=== PATIENT | male | born 1995 | race African-American/Black ===

== ENCOUNTER 2020-10-26 07:22 | Emergency (ER) | payer OTHER, SELFPAY ==
--- OUTSIDE RECORDS SUMMARY | 2020-10-26 07:24 | XMS REPORT | Continuity of Care Document ---
:1995 Author Organization [facility] t Address [address] [place] [address] Care Team Providers Name Role Phone Samira ESCALANTE, T Attending Clinician Unavailable Only, Test Attending Clinician Unavailable Problems This patient has no known problems. Allergies, Adverse Reactions, Alerts This patient has no known allergies or adverse reactions. Medications This patient has no known medications. Procedures This patient has no known procedures. Encounters Start End Encounter Admission Attending Care Care Encounter Source Date/Time Date/Time Type Type Clinicians Facility Department ID 2020-04-10 2020-04-10 Letter EVAN Hogan [id number] 00:00:00 00:00:00 (Out) Joan CHIU 350.1.13.10 [facility] [id number] 2020-04-09 2020-04-09 Laboratory Only, [facility] [id number] 13:09:59 13:24:59 Only Test [place] 350.1.13.10 [place] 4.2.7.2.686 [place] [id number] 2020-04-08 2020-04-08 Laboratory Only, [facility] 1.2.840.114 [id number] 10:18:01 10:33:01 Only Test [place] 350.1.13.10 [place] 4.2.7.2.686 [place] [id number] 353 Results This patient has no known results.
[2020-10-26 08:03] LABS: Urine Blood 3+ (Negative); Urine Glucose Negative (Negative); Urine Protein Trace (Negative); Urine Specific Gravity 1.025 (1.005-1.030)
[2020-10-26 08:22] LABS: Absolute Lymphocytes (CBC) 1.6 K/uL (0.7-4.9); Basophils % 0.7 % (0-1.3); Hematocrit 47.2 % (39.6-49.0); Lymphocytes % 27.8 % (15.3-44.8); MPV 8.1 fL (7.6-11.3); RBC Red Blood Cell Count 5.46 M/uL (4.33-5.43)
[2020-10-26] MEDS ORDERED: ONDANSETRON 4 MG/2 ML VIAL ONE (08:22)
[2020-10-26] MEDS ORDERED: NA CHLORIDE 0.9% 1,000 ML ONE (08:22)
[2020-10-26] MEDS ORDERED: KETOROLAC 30 MG/ML INJ ONE (08:22)
[2020-10-26 09:02] LABS: Albumin 3.9 g/dL (3.4-5.0); Bilirubin Direct 0.1 mg/dL (0-0.2); Bilirubin Total 0.3 mg/dL (0.2-1.0); Potassium 3.7 mmol/L (3.5-5.1); Protein, Total 7.1 g/dL (6.4-8.2)
--- NOTE | 2020-10-26 09:23 | RAD REPORT ---
EXAM DESCRIPTION: CT - Abdomen Pelvis W Contrast - 10/26/2020 8:30 am CLINICAL HISTORY: LLQ abd pain ? diverticulitis vs stone COMPARISON: No comparisons TECHNIQUE: Biphasic, helical CT imaging of the abdomen and pelvis was performed following 100 ml non -ionic IV contrast. No oral contrast administered. All CT scans are performed using dose optimization technique as appropriate and may include automated exposure control or mA/KV adjustment according to patient size. FINDINGS: No suspicious findings in the lung bases. The liver, spleen, and pancreas show no suspicious findings. Gallbladder and biliary tree are also wi thout suspicious finding. Symmetric renal function is seen with no hydronephrosis or suspicious renal mass. Hyperdense areas in bilateral renal calices could be nonobstructing calculi or focally dense contrast material. This is not an acute clinical finding. Right kidney is incompletely rotated as a normal variant. No obstructi ng calculi. Phleboliths are seen along the pelvic floor. No pyelonephritis or acute parenchymal proce ss. No bladder abnormalities. No adrenal abnormalities. No dilated bowel loops or bowel wall thickening. No inflammatory bowel changes seen. Appendix is norm al. Moderate stool volume seen in the right-side of the colon. No free air, free fluid or inflammator y stranding. No mass or bulky lymphadenopathy. Small fat only umbilical hernia present. No suspicious bony findings. IMPRESSION: Contrast enhanced CT abdomen and pelvis showing no significant or suspicious finding. Patient appears to have nonobstructing renal calyx calculi. No evidence for an acute obstructing calc ulus.
--- NOTE | 2020-10-26 09:37 | EDPHYS ---
Physician Documentation [facility] Name: Kirill Collins Age: 25 yrs Sex: Male : 1995 Arrival Date: 10/26/2020 Time: 07:24 Bed 17 Private MD: ED Physician Moose Leal HPI: 10/26 09:34 This 25 yrs old Black Male presents to ER via Ambulatory with complaints of Abdominal ma2 Pain. 09:34 The patient complains of pain in the left mid back. Severity of pain: At its worst the ma2 pain was very mild in the emergency department the pain has improved. The patient has not experienced similar symptoms in the past. Historical: - Allergies: 07:38 No Known Allergies; aa5 - Home Meds: 07:38 amlodipine 2.5 mg tab 1 tab once daily [Active]; lisinopril 20 mg Oral tab 1 tab once aa5 daily [Active]; "appetite suppressant" [Active]; - PMHx: 07:38 Hypertension; aa5 - PSHx: 07:38 None; aa5 - Immunization history:: Adult Immunizations unknown. - Social history:: Smoking status: Patient denies any tobacco usage or history of. Patient/guardian denies using alcohol, street drugs, The patient lives with family. - Family history:: not pertinent. ROS: 09:34 Constitutional: Negative for fever, chills, and weight loss. ma2 09:34 All other systems are negative. Exam: 09:34 Constitutional: This is a well developed, well nourished patient who is awake, alert, ma2 and in no acute distress. Eyes: Pupils equal round and reactive to light, extra-ocular motions intact. Lids and lashes normal. Conjunctiva and sclera are non-icteric and not injected. Cornea within normal limits. Periorbital areas with no swelling, redness, or edema. ENT: Nares patent. No nasal discharge, no septal abnormalities noted. Tympanic membranes are normal and external auditory canals are clear. Oropharynx with no redness, swelling, or masses, exudates, or evidence of obstruction, uvula midline. Mucous membranes moist. Neck: Trachea midline, no thyromegaly or masses palpated, and no cervical lymphadenopathy. Supple, full range of motion without nuchal rigidity, or vertebral point tenderness. No Meningismus. Chest/axilla: Normal chest wall appearance and motion. Nontender with no deformity. No lesions are appreciated. Cardiovascular: Regular rate and rhythm with a normal S1 and S2. No gallops, murmurs, or rubs. Normal PMI, no JVD. No pulse deficits. Respiratory: Lungs have equal breath sounds bilaterally, clear to auscultation and percussion. No rales, rhonchi or wheezes noted. No increased work of breathing, no retractions or nasal flaring. Abdomen/GI: Soft, non-tender, with normal bowel sounds. No distension or tympany. No guarding or rebound. No evidence of tenderness throughout. Skin: Warm, dry with normal turgor. Normal color with no rashes, no lesions, and no evidence of cellulitis. MS/ Extremity: Pulses equal, no cyanosis. Neurovascular intact. Full, normal range of motion. Neuro: Awake and alert, GCS 15, oriented to person, place, time, and situation. Cranial nerves II-XII grossly intact. Motor strength 5/5 in all extremities. Sensory grossly intact. Cerebellar exam normal. Normal gait. Vital Signs: 07:25 BP 166 / 93; Pulse 73; Resp 16 S; Temp 98.5(O); Pulse Ox 98% on R/A; Weight 102.06 kg aa5 (R); Height 6 ft. 0 in. (182.88 cm) (R); Pain 6/10; 08:30 BP 140 / 93; Pulse 68; Resp 17; Pulse Ox 98% on R/A; kg 09:30 BP 136 / 88; Pulse 60; Resp 17; Pulse Ox 99% on R/A; kg 10:03 BP 136 / 88; Pulse 60; Resp 19; Pulse Ox 99% on R/A; kg 07:25 Body Mass Index 30.52 (102.06 kg, 182.88 cm) aa5 MDM: 07:30 Patient medically screened. ma2 09:34 Differential diagnosis: nephrolithiasis, UTI, diverticulitis, pancreatitis. Data ma2 reviewed: vital signs, nurses notes. Counseling: I had a detailed discussion with the patient and/or guardian regarding: the historical points, exam findings, and any diagnostic results supporting the discharge/admit diagnosis, the presence of at least one elevated blood pressure reading (>120/80) during this emergency department visit, the need for outpatient follow up. Response to treatment: the patient's symptoms have markedly improved after treatment. 10/26 07:42 Order name: Basic Metabolic Panel [facility] 10/26 07:42 Order name: CBC with Diff ri2 10/26 07:42 Order name: Hepatic Function; Complete Time: 09:02 ri2 10/26 07:42 Order name: Lipase; Complete Time: 09:02 ri2 10/26 07:42 Order name: Basic Metabolic Panel; Complete Time: 09:02 MS 10/26 07:42 Order name: CBC with Automated Diff; Complete Time: 08:31 MS 10/26 07:42 Order name: IV Saline Lock; Complete Time: 08:15 [facility] 10/26 07:42 Order name: Labs collected and sent; Complete Time: 08:15 ri2 10/26 07:42 Order name: CT Abd/Pelvis - IV Contrast Only; Complete Time: 09:24 [facility] 10/26 08:02 Order name: Urine Dipstick-Ancillary [facility] 10/26 08:30 Order name: CREATININE WHOLE BLOOD; Complete Time: 08:31 [facility] 10/26 07:42 Order name: Urine Dipstick-Ancillary (obtain specimen); Complete Time: 08:15 ma2 Administered Medications: 08:10 Drug: NS 0.9% 1000 ml Route: IV; Rate: 1 bolus; Site: right antecubital; kg 10:05 Follow up: IV Status: Completed infusion; IV Intake: 1000ml kg 10:20 Follow up: Response: No adverse reaction; Marked relief of symptoms kg 08:10 Drug: TORadol (ketorolac) 30 mg Route: IVP; Site: right antecubital; kg 08:54 Follow up: Response: No adverse reaction; Marked relief of symptoms; Pain is decreased kg 08:10 Drug: Zofran (Ondansetron) 4 mg Route: IVP; Site: right antecubital; kg 08:54 Follow up: Response: No adverse reaction; Marked relief of symptoms kg Disposition: 10/26/20 09:36 Discharged to Home. Impression: Lower abdominal pain, unspecified. - Condition is Stable. - Discharge Instructions: Colic, Ufkm-dn-Koba. - Prescriptions for Zofran 4 mg Oral Tablet - take 1 tablet by ORAL route every 12 hours As needed; 20 tablet. Flomax 0.4 mg Oral Capsule, Sust. Release 24 hr - take 1 capsule by ORAL route once daily 1/2 hour following the same meal each day; 30 capsule. Diclofenac Sodium 75 mg Oral Tablet Sustained Release - take 1 tablet by ORAL route 2 times per day; 30 tablet. - Medication Reconciliation Form, Thank You Letter, Antibiotic Education, Prescription Opioid Use form. - Follow up: Private Physician; When: Tomorrow; Reason: If symptoms return, Continuance of care. Signatures: Dispatcher [employer] EDNorma Patricio, RN RN aa5 Moose Leal MD MD ma2 Ann Marie Barrientos kg Corrections: (The following items were deleted from the chart) 10:20 09:36 10/26/2020 09:36 Discharged to Home. Impression: Lower abdominal pain, kg unspecified. Condition is Stable. Prescriptions for Zofran 4 mg Oral Tablet - take 1 tablet by ORAL route every 12 hours As needed; 20 tablet, Flomax 0.4 mg Oral Capsule, Sust. Release 24 hr - take 1 capsule by ORAL route once daily 1/2 hour following the same meal each day; 30 capsule, Diclofenac Sodium 75 mg Oral Tablet Sustained Release - take 1 tablet by ORAL route 2 times per day; 30 tablet. and Forms are Medication Reconciliation Form, Thank You Letter, Antibiotic Education, Prescription Opioid Use. Follow up: Private Physician; When: Tomorrow; Reason: If symptoms return, Continuance of care. ma2
--- NOTE | 2020-10-26 09:37 | ER ---
Nurse's Notes [facility] Name: Kirill Collins Age: 25 yrs Sex: Male : 1995 Arrival Date: 10/26/2020 Time: 07:24 Bed 17 Private MD: Diagnosis: Lower abdominal pain, unspecified Presentation: 10/26 07:25 Chief complaint: Patient states: LLQ pain that began at 0530, reports vomiting twice aa5 today. 07:25 Coronavirus screen: vomiting. Ebola Screen: Patient negative for fever greater than or aa5 equal to 101.5 degrees Fahrenheit, and additional compatible Ebola Virus Disease symptoms. Initial Sepsis Screen: Does the patient meet any 2 criteria? No. Patient's initial sepsis screen is negative. Does the patient have a suspected source of infection? No. Patient's initial sepsis screen is negative. Risk Assessment: Do you want to hurt yourself or someone else? Patient reports no desire to harm self or others. Onset of symptoms was October 2020. 07:25 Acuity: KELLY 3 aa5 07:25 Method Of Arrival: Ambulatory aa5 Historical: - Allergies: 07:38 No Known Allergies; aa5 - Home Meds: 07:38 amlodipine 2.5 mg tab 1 tab once daily [Active]; lisinopril 20 mg Oral tab 1 tab once aa5 daily [Active]; "appetite suppressant" [Active]; - PMHx: 07:38 Hypertension; aa5 - PSHx: 07:38 None; aa5 - Immunization history:: Adult Immunizations unknown. - Social history:: Smoking status: Patient denies any tobacco usage or history of. Patient/guardian denies using alcohol, street drugs, The patient lives with family. - Family history:: not pertinent. Screenin:23 Abuse screen: Denies threats or abuse. Denies injuries from another. Nutritional kg screening: No deficits noted. Tuberculosis screening: No symptoms or risk factors identified. Fall Risk None identified. No fall in past 12 months (0 pts). No secondary diagnosis (0 pts). IV access (20 points). Ambulatory Aid- None/Bed Rest/Nurse Assist (0 pts). Gait- Normal/Bed Rest/Wheelchair (0 pts) Mental Status- Oriented to own ability (0 pts). Total Jha Fall Scale indicates No Risk (0-24 pts). Assessment: 08:21 General: Appears in no apparent distress. Behavior is calm, cooperative, appropriate kg for age, quiet. Pain: Complains of pain in right femoral area, suprapubic area and right inguinal area Pain does not radiate. Pain currently is 3 out of 10 on a pain scale. at worst was 8 out of 10 on a pain scale. level that patient reports is acceptable is 5 out of 10 on a pain scale. Quality of pain is described as aching, sharp, Pain began 4 hours ago. 08:22 Neuro: No deficits noted. Cardiovascular: No deficits noted. Respiratory: No deficits kg noted. GI: Bowel sounds present X 4 quads. Abd is soft Abdomen is tender to palpation in right upper quadrant and right lower quadrant Reports lower abdominal pain, nausea, vomiting. : No deficits noted. : Reports decrease in pain after urination. EENT: No deficits noted. Derm: No deficits noted. Musculoskeletal: No deficits noted. Vital Signs: 07:25 BP 166 / 93; Pulse 73; Resp 16 S; Temp 98.5(O); Pulse Ox 98% on R/A; Weight 102.06 kg aa5 (R); Height 6 ft. 0 in. (182.88 cm) (R); Pain 6/10; 08:30 BP 140 / 93; Pulse 68; Resp 17; Pulse Ox 98% on R/A; kg 09:30 BP 136 / 88; Pulse 60; Resp 17; Pulse Ox 99% on R/A; kg 10:03 BP 136 / 88; Pulse 60; Resp 19; Pulse Ox 99% on R/A; kg 07:25 Body Mass Index 30.52 (102.06 kg, 182.88 cm) aa5 ED Course: 07:24 Patient arrived in ED. as 07:25 Arm band placed on. aa5 07:30 Moose Leal MD is Attending Physician. ma2 07:36 Triage completed. aa5 07:41 Ann Marie Barrientos is Primary Nurse. kg 08:05 Inserted saline lock: 20 gauge in right antecubital area, using aseptic technique. kg 08:24 Patient has correct armband on for positive identification. Bed in low position. Call kg light in reach. Side rails up X 1. 08:31 CT Abd/Pelvis - IV Contrast Only In Process Unspecified. EDMS 10:18 IV discontinued, intact, bleeding controlled, No redness/swelling at site. Pressure kg dressing applied. 10:19 No provider procedures requiring assistance completed. kg Administered Medications: 08:10 Drug: NS 0.9% 1000 ml Route: IV; Rate: 1 bolus; Site: right antecubital; kg 10:05 Follow up: IV Status: Completed infusion; IV Intake: 1000ml kg 10:20 Follow up: Response: No adverse reaction; Marked relief of symptoms kg 08:10 Drug: TORadol (ketorolac) 30 mg Route: IVP; Site: right antecubital; kg 08:54 Follow up: Response: No adverse reaction; Marked relief of symptoms; Pain is decreased kg 08:10 Drug: Zofran (Ondansetron) 4 mg Route: IVP; Site: right antecubital; kg 08:54 Follow up: Response: No adverse reaction; Marked relief of symptoms kg Intake: 10:05 IV: 1000ml; Total: 1000ml. kg Outcome: 09:36 Discharge ordered by MD. tobin 10:19 Discharged to home ambulatory. kg 10:19 Condition: good 10:19 Discharge instructions given to patient, Instructed on discharge instructions, follow up and referral plans. Demonstrated understanding of instructions, follow-up care, medications, Prescriptions given X 3. 10:20 Patient left the ED. kg Signatures: Dispatcher [employer] Criss Bryson Audri, RN RN aa5 Moose Leal MD MD ma2 Graham, Kristen kg
[2020-10-26 10:26] VITALS: TEMP 98.5
[2020-10-26 10:30] VITALS: BP 136/88; O2SAT 99
== END 2020-10-26 10:20 | disposition home or self-care (01) ==
LOC: ER 07:22
DX: R10.30 Lower abdominal pain, unspecified (principal); I10 Essential (primary) hypertension
CPT/HCPCS: 36415; 74177; 80048; 80076; 81003; 82565; 83690; 85025; 96361; 96374; 96375; 99284; J2405; J7030; Q9967

== ENCOUNTER 2025-01-15 10:10 | Inpatient (IN) | payer OTHER ==
--- OUTSIDE RECORDS SUMMARY | 2025-01-15 10:14 | XMS REPORT | Continuity of Care Document ---
Author Name Unknown Address [address] [place] [address] [facility] Address [address] [place] [address] Care Team Providers Care Infectious Waste Technician Name Role Phone MARIELA SU Primary Care Physician Unavaila СЕРГЕЙ Molina Attending Clinician Unavailable СЕРГЕЙ VASQUEZ Attending Clinician Unavailable 2, Adc Lab Attending Clinician Unavailable Abhay EVALUATION ENGINEER, Terell Attending Clinician Samira ESCALANTE, Joan Terrell Attending Clinician Unavailab le Only, Ang Db Test Attending Clinician Unavailabl e Spring Moore Attending Clinician [phone] [place] HOLGUIN Attending Clinician Unavailabl e Doctor Unassigned, Angelica Attending Clinician U navailable Only, Adc Test Attending Clinician Unavailable Prince Lozada MD Attending Clinician [phone] PRINCE LOZADA Attending Clinician Unavailabl e Payers Payer Name Policy Type Policy Number Effective Date Expirati on Date Source [employer] II [id number] 2020 00:00:00 [facility] [id number] 2019 00:00:00 Allergies, Adverse Reactions, Alerts Allergy Name Allergy Type Status Severity Reaction(s) Onset Date Inactive Date Treating Clinician Comments Source NO KNOWN ALLERGIE S Drug Class Active [facility] Social History Social Habit Start Date Stop Date Quantity Comments Source Sexual orientation U [facility] Exposure to SARS-CoV-2 (event) 2021-03-07 00:00:00 2021-04-06 13:29:00 Not sure [facility] Sex assigned at 1995 00:00:00 1995 00:00:00 [facility] Smoking Status Start Date Stop Date Source Tobacco smoking consumption unknown [facility] Encounters Start Date/Time End Date/Time Encounter Type Admission Type Attending [facility] Facility Care Department Encounter ID Source 2024-11-20 11:15:00 2024-11-20 10:14:18 Chip Mucker Visit R СЕРГЕЙ VASQUEZ NAVEED [facility] 1.2.840.114 350.1.13.10 [id number] [id number] [facility] 2024-11-19 11:45:00 2024-11-19 12:00:00 Chip Mucker Visit R 2, Adc Lab Terell Blank 2, Adc Lab [facility] 1.2.840.114 350.1.13.10 [id number] [id number] [facility] 2021-04-07 00:00:00 2021-04-07 00:00:00 Letter (Out) Joan Hogan [facility] 1.2.840.114 350.1.13.10 [id number] [id number] [facility] 2021-04-06 13:30:40 2021-04-06 13:45:40 Laboratory Only Only, Ang Db Test Spring Holguin [facility] 1.2.840.114 350.1.13.10 [id number] [id number] [facility] 2021-04-06 13:30:00 2021-04-06 13:30:00 Outpatient R SPRING HOLGUIN [facility] [id number] [facility] 2020-04-10 00:00:00 2020-04-10 00:00:00 [facility] 1.2.840.114 350.1.13.10 4.2.7.2.686 [id number] 2020-04-10 00:00:00 2020-04-10 00:00:00 [facility] (Out[facility] 1.2.840.114 350.1.13.10 4.2.7.2.686 [id number] [facility] 2020-04-10 00:00:00 2020-04-10 00:00:00 Patient Secure Msg Doctor Unassigned, Angelica [facility] 1.2.840.114 350.1.13.10 4.2.7.2.686 [id number] [facility] 2020-04-09 13:09:59 2020-04-09 13:24:59 Laboratory Only Only, Adc Test [facility] 1.2.840.114 350.1.13.10 4.2.7.2.686 [id number] 2020-04-09 13:09:59 2020-04-09 13:24:59 Laboratory Only Only, Adc Test Reanna [facility] 1.2.840.114 350.1.13.10 4.2.7.2.686 [id number] [facility] 2020-04-09 13:00:00 2020-04-09 13:00:00 Outpatient R [facility] [id number] [facility] 2020-04-08 10:18:01 2020-04-08 10:33:01 Laboratory Only Only, Adc Test Reanna [facility] 1.2.840.114 350.1.13.10 4.2.7.2.686 [id number] [facility] 2020-04-08 10:18:01 2020-04-08 10:33:01 Laboratory Only Only, Adc Test [facility] 1.2.840.114 350.1.13.10 4.2.7.2.686 [id number] 2020-04-08 10:00:00 2020-04-08 10:00:00 Outpatient PRINCE LILLY [facility] [id number] [facility] Notes Date/Time Note Provider Source 2024-11-20 11:15:00 Images from the original note were not included. Venipuncture collection performed by clean technique on the left anticubitus. Total of 1 attempts were made. Slight pressure and a bandage/dressing were applied to the site(s). The patient experienced no complications. The following specimens were processed according to instructions and sent to [facility] laboratories per lab order on 11/20/2024 : LT BLUE SST 2 RED LAV 1 PPT DK GREEN (LiHep) DK GREEN (SodH) [place] DK BLUE (K2) DK BLUE (S) ACD Blood Culture NIPT/NTD Patient has been identified by and was provided with cup, antiseptic towelette, and clean catch instructions. 1 urine specimen(s) sent. Unpreserved 1 Urine Culture Aptima tube Other urine [facility] 2024-11-19 11:45:00 No lab orders. Pt not availble to let us know who ordering provider for 24hr urine Jesi Espino [facility]
[2025-01-15] MEDS ORDERED: NA CHLORIDE 0.9% 1,000 ML ONE (11:14)
[2025-01-15] MEDS ORDERED: KETOROLAC 30 MG/ML INJ ONE (11:14)
[2025-01-15 11:15] LABS: Absolute Lymphocytes (CBC) 1.3 K/uL (0.7-4.9); Hematocrit 47.5 % (39.6-49.0); Hemoglobin 16.0 g/dL (13.6-17.9); MCH 29.9 pg (27.0-35.0); MCHC 33.8 g/dL (32.0-36.0); MCV 88.5 fL (80-100); MPV 7.3 fL (7.6-11.3); Nucleated RBC Absolute Count 0.0 (0-0); Nucleated Red Blood Cells % 0.1 % (0-0); RBC Red Blood Cell Count 5.36 M/uL (4.33-5.43); White Blood Count 7.70 thou/uL (4.3-10.9)
[2025-01-15 11:21] LABS: Sqamous Epithelial None Seen /HPF (None Seen); Urine Culture Reflex Order NOT NEEDED; Urine Microscopic Reflex YN ORDER UMIC
[2025-01-15 11:38] LABS: ALT/SGPT 40.0 U/L (16-61); AST/SGOT 32.0 U/L (15-37); Albumin 3.8 g/dL (3.4-5.0); Albumin/Globulin Ratio 1.2 (1.1-1.8); Alkaline Phosphatase 56.0 U/L (45-117); Anion Gap 7.8 mEq/L (5.0-15.0); BUN Blood Urea Nitrogen 28.0 mg/dL (7-18); Globulin 3.3 g/dL (2.3-3.5); Glucose Level 95.0 mg/dL (74-106); Lipase 22.0 U/L (13-75); Potassium 3.8 mEq/L (3.5-5.1)
--- NOTE | 2025-01-15 11:52 | RAD REPORT ---
EXAMINATION: CT Abdomen Pelvis Wo Contrast CLINICAL INDICATION: Male, 30 years old. FLANK PAIN TECHNIQUE: CT abdomen and pelvis was performed, without IV contrast, as per department protocol. Axia l, sagittal and coronal reconstructions were obtained. One or more of the following dose reduction techniques were used: Automated exposure control, adjustment of the mA and kV according to the patien t size, and iterative reconstruction. Unless otherwise specified, incidental findings do not require dedicated imaging follow-up. COMPARISON: 12/27/2024 FINDINGS: The lack of intravenous contrast limits the sensitivity of this exam for evaluation of solid visceral organs, vascular structures, and retroperitoneum. LOWER CHEST: The visualized lung bases are clear. LIVER: Normal in size and contour. No focal lesion. BILIARY SYSTEM: No suspicious abnormalities. SPLEEN: Normal size. No focal lesion. PANCREAS: No mass, ductal dilation, or cricket-pancreatic fluid. ADRENALS: Normal; no mass. KIDNEYS AND URETERS: Anteriorly located right kidney again seen. 6 mm calculus along the right ureter has now progressed to the level of the mid to distal right ureter junction. Moderate hydroureteronephrosis again seen. 2-3 mm left upper pole nonobstructing calculus again seen. URINARY BLADDER: Normal contour. GASTROINTESTINAL TRACT: No evidence of bowel obstruction, significant free fluid, free air or abscess . APPENDIX: Normal appendix. LYMPH NODES: No lymphadenopathy. MUSCULOSKELETAL: No acute or suspicious osseous abnormality. ADDITIONAL FINDINGS: None. IMPRESSION: The 6 mm right ureteral calculus now resides at the junction of the mid to distal ureter. Persistent moderate hydroureteronephrosis. Nonobstructing left upper pole 3 mm calculus again seen. THIS REPORT CONTAINS FINDINGS THAT MAY BE CRITICAL TO PATIENT CARE. The findings were verbally commun icated via telephone to Imelda Tsai on 01/15/2025 11:50 AM.
--- NOTE | 2025-01-15 12:45 | ER ---
Nurse's Notes [facility] Name: Kirill Collins Jr Age: 30 yrs Sex: Male : 1995 Arrival Date: 01/15/2025 Time: 10:10 Bed 6 Private MD: Diagnosis: Ureterolithiasis, acute kidney injury Presentation: 01/15 10:26 Chief complaint: Patient states: came in a couple weeks ago for a kidney stone, he iw never passed it , now the pain is back this morning , pain to my bladder area. Coronavirus screen: At this time, the client does not indicate any symptoms associated with coronavirus-19. Ebola Screen: No symptoms or risks identified at this time. Initial Sepsis Screen: Does the patient meet any 2 criteria? No. Patient's initial sepsis screen is negative. Does the patient have a suspected source of infection? No. Patient's initial sepsis screen is negative. Risk Assessment: Do you want to hurt yourself or someone else? Patient reports no desire to harm self or others. Onset of symptoms was January 15, 2025. 10:26 Method Of Arrival: Ambulatory iw 10:26 Acuity: KELLY 3 iw Triage Assessment: 10:30 General: Appears in no apparent distress. Behavior is calm, cooperative, appropriate bp for age. Pain: Complains of pain in back. EENT: No deficits noted. Neuro: No deficits noted. Cardiovascular: No deficits noted. Respiratory: No deficits noted. GI: No deficits noted. : Reports pain in lower back. Derm: No deficits noted. Musculoskeletal: Circulation, motion, and sensation intact. Range of motion: intact in all extremities. Historical: - Allergies: 10:28 No Known Allergies; iw - Home Meds: 10:28 amlodipine 2.5 mg tab 1 tab once daily [Active]; lisinopril-hydrochlorothiazide oral iw [Active]; - PMHx: 10:28 Hypertension; iw - PSHx: 10:28 None; iw - Immunization history:: Adult Immunizations up to date. - Infectious Disease History:: Denies. - Social history:: Smoking status: Patient denies any tobacco usage or history of. Screenin:38 [facility] ED Fall Risk Assessment (Adult) History of falling in the last 3 months, bp including since admission No falls in past 3 months (0 pts) Confusion or Disorientation No (0 pts) Intoxicated or Sedated No (0 pts) Impaired Gait No (0 pts) Mobility Assist Device Used No (0 pt) Altered Elimination No (0 pt) Score/Fall Risk Level 0 - 2 = Low Risk Oriented to surroundings. Abuse screen: Denies threats or abuse. Denies injuries from another. Nutritional screening: No deficits noted. Tuberculosis screening: No symptoms or risk factors identified. Assessment: 10:30 General: SEE TRIAGE NOTE. Neuro: Level of Consciousness is awake, alert, obeys bp commands, Oriented to Appropriate for age Moves all extremities. Full function. 12:37 Reassessment: Patient appears in no apparent distress at this time. Patient is alert, bp oriented x 3, equal unlabored respirations, skin warm/dry/pink. 14:33 Reassessment: REPORT SENT FOR RM 206. PT FOR OR. bp Vital Signs: 10:26 BP 135 / 94; Pulse 71; Resp 16; Temp 97.3; Pulse Ox 99% ; Weight 95.25 kg; Height 6 ft. iw 0 in. ; Pain 7/10; 12:37 BP 127 / 89; Pulse 73; Resp 16; Pulse Ox 100% ; bp 14:32 BP 131 / 79; Pulse 75; Resp 16; Pulse Ox 99% ; bp 10:26 Body Mass Index 28.48 (95.25 kg, 182.88 cm) iw 10:26 Pain Scale: Adult iw ED Course: 10:14 Patient arrived in ED. gl 10:24 Corinne Aguilar MD is Attending Physician. sp3 10:28 Triage completed. iw 10:28 Arm band placed on. iw 10:36 Jhonathan Morales, RN is Primary Nurse. bp 10:57 CT Abd/Pelvis - Without Contrast In Process Unspecified. EDMS 11:13 Initial lab(s) drawn, by me, sent to lab. Urine collected: clean catch specimen, clear. [id number] Inserted saline lock: 20 gauge in right antecubital area, using aseptic technique. Blood collected. Flushed with 10 mL NS. Patient maintains SpO2 saturation greater than 95% on room air. 12:38 Patient has correct armband on for positive identification. bp 12:44 Mike Serna MD is Hospitalizing Provider. sp3 14:32 No provider procedures requiring assistance completed. Patient admitted, IV remains in bp place. Administered Medications: 11:15 Drug: TORadol - Ketorolac IVP 15 mg IVP once Route: IVP; Site: right antecubital; bp 14:33 Follow up: Response: No adverse reaction bp 11:15 Drug: NS 0.9% IV 1000 ml IV at 1 bolus Per protocol; to be given as a bolus over 60 bp minutes Route: IV; Rate: 1 bolus; Site: right antecubital; 14:33 Follow up: IV Status: Completed infusion bp Outcome: 12:44 Decision to Hospitalize by Provider. sp3 14:34 Admitted to OR accompanied by nurse, via wheelchair, bp 14:34 Condition: stable 14:34 Instructed on the need for admit, 14:37 Patient left the ED. bp Signatures: Dispatcher [employer] EDJovanna Rowe, Jhonathan Peralta RN, RN RN bp Patel, Setul, MD MD sp3 Ira Blank RN RN [id number] Karen Corley, Reg Reg gl
--- NOTE | 2025-01-15 12:45 | EDPHYS ---
Physician Documentation [facility] Name: Kirill Collins Jr Age: 30 yrs Sex: Male : 1995 Arrival Date: 01/15/2025 Time: 10:10 Bed 6 Private MD: ED Physician Corinne Aguilar HPI: 01/15 10:56 This 30 yrs old Black Male presents to ER via Ambulatory with complaints of Back Pain. sp3 10:56 30-year-old male with history of hypertension and kidney stones who was seen here December sp3 17 and had a right sided kidney stone at the [facility] now presents for recurrent and ongoing pain since that incident on the right flank. Patient states he got worse today and so he presents to the ED for further evaluation. He denies any other symptoms including gross visualized hematuria, dysuria, urinary frequency, left-sided pain, intra-abdominal pain, vomiting, diarrhea, or any other signs or symptoms on ROS at this time.. Historical: - Allergies: 10:28 No Known Allergies; iw - Home Meds: 10:28 amlodipine 2.5 mg tab 1 tab once daily [Active]; lisinopril-hydrochlorothiazide oral iw [Active]; - PMHx: 10:28 Hypertension; iw - PSHx: 10:28 None; iw - Immunization history:: Adult Immunizations up to date. - Infectious Disease History:: Denies. - Social history:: Smoking status: Patient denies any tobacco usage or history of. ROS: 10:57 Constitutional: Negative for fever, chills, and weight loss, Eyes: Negative for injury, sp3 pain, redness, and discharge, ENT: Negative for injury, pain, and discharge, Neck: Negative for injury, pain, and swelling, Cardiovascular: Negative for chest pain, palpitations, and edema, Respiratory: Negative for shortness of breath, cough, wheezing, and pleuritic chest pain, MS/Extremity: Negative for injury and deformity, Skin: Negative for injury, rash, and discoloration, Neuro: Negative for headache, weakness, numbness, tingling, and seizure, Psych: Negative for depression, anxiety, suicide ideation, homicidal ideation, and hallucinations, Allergy/Immunology: Negative for hives, rash, and allergies, Endocrine: Negative for neck swelling, polydipsia, polyuria, polyphagia, and marked weight changes, 10:57 All other systems are negative, Exam: 10:57 Constitutional: This is a well developed, well nourished patient who is awake, alert, sp3 and in no acute distress. Head/Face: Normocephalic, atraumatic. Eyes: Pupils equal round and reactive to light, extra-ocular motions intact. Lids and lashes normal. Conjunctiva and sclera are non-icteric and not injected. Cornea within normal limits. Periorbital areas with no swelling, redness, or edema. Neck: Trachea midline, no thyromegaly or masses palpated, and no cervical lymphadenopathy. Supple, full range of motion without nuchal rigidity, or vertebral point tenderness. No Meningismus. Chest/axilla: Normal chest wall appearance and motion. Nontender with no deformity. No lesions are appreciated. Cardiovascular: Regular rate and rhythm with a normal S1 and S2. No gallops, murmurs, or rubs. Normal PMI, no JVD. No pulse deficits. Respiratory: Lungs have equal breath sounds bilaterally, clear to auscultation and percussion. No rales, rhonchi or wheezes noted. No increased work of breathing, no retractions or nasal flaring. Abdomen/GI: Soft, non-tender, with normal bowel sounds. No distension or tympany. No guarding or rebound. No evidence of tenderness throughout. Skin: Warm, dry with normal turgor. Normal color with no rashes, no lesions, and no evidence of cellulitis. MS/ Extremity: Pulses equal, no cyanosis. Neurovascular intact. Full, normal range of motion. Neuro: Awake and alert, GCS 15, oriented to person, place, time, and situation. Cranial nerves II-XII grossly intact. Motor strength 5/5 in all extremities. Sensory grossly intact. Cerebellar exam normal. Normal gait. Psych: Awake, alert, with orientation to person, place and time. Behavior, mood, and affect are within normal limits. 10:57 Back: Right-sided CVA tenderness noted., Vital Signs: 10:26 BP 135 / 94; Pulse 71; Resp 16; Temp 97.3; Pulse Ox 99% ; Weight 95.25 kg; Height 6 ft. iw 0 in. ; Pain 7/10; 12:37 BP 127 / 89; Pulse 73; Resp 16; Pulse Ox 100% ; bp 14:32 BP 131 / 79; Pulse 75; Resp 16; Pulse Ox 99% ; bp 10:26 Body Mass Index 28.48 (95.25 kg, 182.88 cm) iw 10:26 Pain Scale: Adult iw MDM: 10:26 Medical Screening Exam initiated sp3 10:57 Data reviewed: vital signs, nurses notes, old medical records, lab test result(s), sp3 radiologic studies. ED course: 30-year-old male with right-sided flank pain. Differential diagnosis includes recurrent kidney stone, ureterolithiasis, UTI, pyelonephritis, skeletal pain, intra-abdominal/GI pathology, among others. Workup include CT scan of the abdomen pelvis noncontrast, UA and general labs. Ketorolac IV for pain control as well as normal saline.. 12:27 ED course: Waiting on Dr. Appiah to return call. He is in the OR at the moment. sp3 Creatinine at 1.7 essentially the same is 1.8 on his December 27 visit. Stone is moved to the mid ureter still with significant hydro.. 12:43 ED course: Discussed with Dr. Appiah who will be seeing as consultation. Patient will sp3 be admitted to internal medicine.. 01/15 10:49 Order name: CBC with Diff; Complete Time: 11:38 sp3 01/15 10:49 Order name: CMP; Complete Time: 11:38 sp3 01/15 10:49 Order name: Lipase; Complete Time: 11:38 sp3 01/15 10:49 Order name: UA Rfx Bairon Cult if indicated; Complete Time: 11:38 sp3 01/15 13:57 Order name: CBC with Automated Diff EDMS 01/15 13:57 Order name: CBC with Automated Diff EDMS 01/15 13:57 Order name: Comprehensive Metabolic Panel EDMS 01/15 13:57 Order name: Comprehensive Metabolic Panel EDMS 01/15 10:49 Order name: CT Abd/Pelvis - Without Contrast; Complete Time: 11:55 sp3 01/15 10:49 Order name: IV Saline Lock; Complete Time: 11:13 sp3 01/15 10:49 Order name: Labs collected and sent; Complete Time: 11:13 sp3 Administered Medications: 11:15 Drug: TORadol - Ketorolac IVP 15 mg IVP once Route: IVP; Site: right antecubital; bp 14:33 Follow up: Response: No adverse reaction bp 11:15 Drug: NS 0.9% IV 1000 ml IV at 1 bolus Per protocol; to be given as a bolus over 60 bp minutes Route: IV; Rate: 1 bolus; Site: right antecubital; 14:33 Follow up: IV Status: Completed infusion bp Disposition Summary: 01/15/25 12:44 Hospitalization Ordered Notes: Hospitalization Status: Observation sp3 Provider: Mike Serna sp3 Location: Telemetry/MedSurg (observation) sp3 Condition: Stable sp3 Problem: an acute exacerbation sp3 Symptoms: have worsened sp3 Bed/Room Type: Standard sp3 Room Assignment: 206(01/15/25 14:18) bd Diagnosis - Ureterolithiasis, acute kidney injury sp3 Forms: - Medication Reconciliation Form sp3 - SBAR form sp3 - Leadership Thank You Letter sp3 Signatures: Dispatcher [employer] EDKarrie Chu Irene, RN RN iw Jhonathan Morales RN RN bp Patel, Setul, MD MD sp3 Corrections: (The following items were deleted from the chart) 14:18 12:44 sp3 bd
[2025-01-15] MEDS ORDERED: ACETAMINOPHEN 325 MG TABLET PO PRN (13:52)
[2025-01-15] MEDS: NA CHLORIDE 0.9% 1,000 ML IV SCH (14:00)
[2025-01-15] MEDS: Ringers Lactate 1,000 ML IV ONE (15:02)
[2025-01-15] MEDS ORDERED: MIDAZOLAM HCL 2 MG/2 ML INJ ONE (15:30)
[2025-01-15] MEDS ORDERED: FENTANYL CITR 100 MCG/2 ML ONE (15:30)
[2025-01-15] MEDS ORDERED: GLYCOPYRROLATE 0.2 MG/ML SYR ONE ×2 (15:32→16:16)
[2025-01-15] MEDS: SUCCINYLCHOLINE 20 MG/ML (10 ML) IV ONE (15:43)
[2025-01-15] MEDS: CEFAZOLIN SODIUM 2 GM/VIAL ONE (15:57)
--- NOTE | 2025-01-15 16:05 | P.CNS ---
Date of Consult: 01/15/25 Reason for Consult: Right ureterolithiasis Chief Complaint: Right flank pain History of Present Illness: 30-year-old gentleman with hypertension presents with history of nephrolithiasis a few years ago, now with right lower quadrant pain that radiates into the right flank region initially starting about 2 to 3 weeks ago. The pain went away until today when it returned in a severe fashion. He denied any associated fever, chills, nausea or vomiting. In the emergency department, standard workup was performed and he was noted again to have acute kidney injury. Past medical history: Hypertension Past surgical history: None Family history: Denies urologic malignancy Social history: Denies smoking or recreational drug use Comprehensive 12 point review of symptoms is negative except for the above Examination: Well-appearing, well-developed, well-nourished, no acute distress Alert, awake, oriented x 3 No dyspnea or sign of respiratory distress No cervical/supraclavicular adenopathy or thyromegaly Pulse 2+ radial and regular Abdomen soft, nontender, nondistended Resting comfortably in her stretcher 01/15/2025 WBC 7.7, hemoglobin 16.0, creatinine 1.66, UA micro negative 01/15/2025 CT abdomen and pelvis without contrast (my review of the imaging) m arkedly tortuous proximal ureter with kinking at the UPJ on the right associated with a mid ureteral 6.5 mm calculus and no nephrolithiasis on the right. Approximately 2 mm left nephrolithiasis noted. Assessment and recommendation: 30-year-old gentleman with hypertension, recurrent stone former with right 6.5 mm ureterolithiasis contributing to right flank pain and OPAL. -I counseled the patient on the recommendation for surgical intervention given the impact on his kidney function observed. His creatinine was previously as high as 1.8 on her prior emergency department visit and has not improved over time. Cystoscopy with right retrograde pyelography and right ureteral stent placement was discussed in great detail. I explained how the procedure was performed and explained the presence of the stent. The risks of the procedure were discussed to include bleeding, infection, urethral stricture, ureteral stricture. Side effects of irritative LUTS/stent discomfort were discussed in detail. - He will go today urgently for cystoscopy and a right retrograde pyelography with right ureteral stent placement - Continue n.p.o. and IV fluids -Ancef for prophylaxis Allergies No Known Allergies Allergy (Verified 01/15/25 14:59) - Past Medical/Surgical History Diabetic: No Physical Examination Temp Pulse Resp BP Pulse Ox 97.3 F 75 16 131/79 01/15/25 14:49 01/15/25 14:54 01/15/25 14:54 01/15/25 14:54 Laboratory Data (last 24 hrs) 01/15/25 01/15/25 11:05 11:05 WBC 7.70 Hgb 16.0 Hct 47.5 Plt Count 254 Sodium 136 Potassium 3.8 BUN 28 H Creatinine 1.66 H Glucose 95 Total Bilirubin 0.5 AST 32 ALT 40 Alkaline Phosphatase 56 Lipase 22 - Problems (1) Ureterolithiasis Current Visit: Yes Status: Acute (2) Acute right flank pain Current Visit: Yes Status: Acute Conclusions/Impression: see A&P in HPI Critical Care: No Time Spent Managing Pts care (In Minutes): 15
[2025-01-15] MEDS ORDERED: ROCURONIUM 50 MG/5 ML VIAL IV ONE (16:11)
[2025-01-15] MEDS ORDERED: NEOSTIGMINE 1 MG/ML -10 ML VIAL ONE (16:15)
[2025-01-15] MEDS ORDERED: ONDANSETRON 4 MG/2 ML VIAL ONE (16:20)
[2025-01-15 16:55] VITALS: O2SAT 100
[2025-01-15 17:26] VITALS: BP 130/66; TEMP 97.5
[2025-01-15 17:35] VITALS: BMI 28.5
[2025-01-15] MEDS: HYDROCODONE/APAP 10/325 TAB PO PRN (17:54)
--- NOTE | 2025-01-15 17:58 | P.OP ---
Date of Service: 01/15/25 Preoperative diagnoses: Right flank pain Right 6.5 mm mid ureterolithiasis Right hydronephrosis Acute kidney injury Recurrent nephrolithiasis Left small-volume nonobstructing nephrolithiasis 2 mm Postoperative diagnoses: Right flank pain Right 6.5 mm mid ureterolithiasis Right hydronephrosis Acute kidney injury Recurrent nephrolithiasis Left small-volume nonobstructing nephrolithiasis 2 mm Principal procedures: Cystoscopy Right retrograde pyelography Right 7 Jamaican by 26 cm double-J soft Cook ureteral stent placement Indications for procedure: 30-year-old gentleman with hypertension, recurrent stone former with right 6.5 mm ureterolithiasis contributing to right flank pain and OPAL. Procedure note: The patient was consented in the preoperative holding area before being transferred to the operative suite where general anesthesia was induced. He was given Ancef 2 g IV antimicrobial prophylaxis, and pneumoboots were provided for DVT prophylaxis. He was placed in the lithotomy position, padded and secured to the table appropriately. His genitalia was prepped with Hibiclens and he was draped in standard fashion. The case has begun using a 22 Jamaican rigid cystoscope to traverse the urethra and into the bladder with ease. The bladder was surveyed in its entirety, and there were no papillary mucosal lesions, foreign bodies, or stones. The ureteral orifices were orthotopic in location within the trigone. I decompressed the bladder of fluid and urine and then refilled it with sterile saline. I then cannulated the right ureteral orifice using the tip of a 5 Jamaican ureteral access catheter. Right retrograde pyelography: Using a 70: 30 mixture of Omnipaque and saline, contrast was injected via the lumen of the 5 Jamaican ureteral access catheter and did propagate up the distal ureter to a point of obstruction in the mid ureter where there was a transition point and the ureter became much more dilated, and contrast failed to propagate all the way into the proximal ureter and the collecting system. As a result, I got a second bolus of 10 cc of the contrast mixture and advance the 5 Jamaican ureteral access catheter up to the point of obstruction before injecting that second bolus, this time getting the contrast to go into what was clearly a hydronephrotic collecting system with caliectasis and pelviectasis noted. I then advanced a sensor wire via the 5 Jamaican ureteral access catheter and successfully into the upper pole of the right kidney. Over the sensor wire, I then passed a 7 Jamaican by 26 cm double-J Cook soft ureteral stent, with a coil observed fluoroscopically in the upper pole and 1 cystoscopically formed in his bladder. I then decompressed his bladder of fluid and urine and remove the cystoscope. He was then taken out of the lithotomy position, awakened from general anesthesia, transferred to a stretcher, and then transferred to the recovery room in good condition. Complications: None Discharge disposition: He should follow-up as an outpatient to discuss, and preferably be scheduled within the next 30 days for, definitive management to include right sided ureteroscopy with laser lithotripsy and possible stent exchange. In 3 days, on Tuesday, he should check a serum BMP to ensure his creatinine has resolved back to baseline.
--- NOTE | 2025-01-15 18:05 | P.HP ---
Date of Service: 01/15/25 CC: Flank pain 30 yo male admitted with kidney stone , OPAL. Urology consulted. taken to OR. He was stable for dc form PACU. He was brought upstairs. Pain medicine given. General: NAD VSS CVS: rrr Resp:cta Abd:Soft, NT A/P 30 yo male s/p cystoscopy stent placement #OPAL #kidney stone Plan: DC home Tramadol prescribed repeat labs in one week, Urology and PCP followup
--- NOTE | 2025-01-17 08:06 | RAD REPORT ---
Fluoroscopy time 0.18 minutes
== END 2025-01-15 18:40 | disposition home or self-care (01) | DRG 661 ==
LOC: ER 10:10 → ERHOLD 13:52 → 2ND 15:51
PROVIDERS: ADMIT Internal Medicine; ATTEND Internal Medicine
PROC: BT1D1ZZ Fluoroscopy of Right Kidney, Ureter and Bladder using Low Osmolar Contrast (ICD-10-PCS; 2025-01-15)
PROC: 0T768DZ Dilation of Right Ureter with Intraluminal Device, Via Natural or Artificial Opening Endoscopic (ICD-10-PCS; principal; 2025-01-15 12:30)
DX: N17.9 Acute kidney failure, unspecified (principal); I10 Essential (primary) hypertension; N13.2 Hydronephrosis with renal and ureteral calculous obstruction; Z79.899 Other long term (current) drug therapy
CPT/HCPCS: 36415; 51610; 74176; 74450; 80053; 81001; 83690; 85025; 96361; 96374; 99285; J0330; J1100; J2250; J2405; J2704; J2710; J3010; J7030; J7120

== ENCOUNTER 2025-02-05 09:18 | Day surgery (SDC) | payer OTHER ==
[2025-01-25 11:49] LABS: PT Prothrombin Time 12.1 SECONDS (10-13.0); Protime INR 1.07
[2025-01-25 11:50] LABS: Sqamous Epithelial None Seen /HPF (None Seen); Urine Culture Reflex Order REFLEXED; Urine Microscopic Reflex YN ORDER UMIC
--- NOTE | 2025-01-25 12:51 | RAD REPORT ---
EXAM: Chest Pa And Lat (2 Views) HISTORY: 30 years Male pre op for day surgery COMPARISON: No prior exams FINDINGS: LUNGS/PLEURA: The lungs are clear. No pleural effusions or pneumothorax. No pulmonary edema. CARDIAC/MEDIASTINUM: The cardiac silhouette is within normal limits. UPPER ABDOMEN: No significant abnormality. BONES: No acute abnormality. LINES/TUBES/OTHER: N/A IMPRESSION: No evidence of acute cardiopulmonary disease.
[2025-02-05] MEDS ORDERED: Ringers Lactate 1,000 ML IV ONE (09:41)
[2025-02-05] MEDS ORDERED: ONDANSETRON 4 MG/2 ML VIAL ONE (10:59)
[2025-02-05] MEDS ORDERED: FENTANYL CITR 100 MCG/2 ML ONE (11:00)
[2025-02-05] MEDS ORDERED: MIDAZOLAM HCL 2 MG/2 ML INJ ONE (11:00)
[2025-02-05] MEDS ORDERED: LIDOCAINE 1% MPF 5 ML VIAL ONE (11:03)
[2025-02-05] MEDS: CEFAZOLIN SODIUM 2 GM/VIAL ONE (12:10)
[2025-02-05] MEDS ORDERED: Phenylephrine HCl 10 MG/ML 1 ML VIAL ONE (12:50)
[2025-02-05] MEDS ORDERED: GLYCOPYRROLATE 0.2 MG/ML SYR ONE (12:58)
[2025-02-05] MEDS ORDERED: Mastisol Adhesive Liq ONE (12:58)
--- NOTE | 2025-02-05 13:37 | P.OP ---
Date of Service: 02/05/25 Preoperative diagnoses: Right ureterolithiasis s/p right ureteral stent placement Postoperative diagnoses: Right ureterolithiasis s/p right ureteral stent placement Principal procedures: Cystoscopy with right ureteral stent extraction Right retrograde pyelography Right semirigid ureteroscopy with laser lithotripsy Right ureteroscopic stone basketing Right 7 Guyanese by 26 cm double-J tethered ureteral stent replacement Specimens: Ureteral Stone fragments Indications for procedure: 30-year-old gentleman who presented via the emergency department with right flank pain associated with obstructive ureterolithiasis. He has a history of CKD stage IIIa and underwent ureteral stent placement because of a concern for OPAL on CKD. He presents today for definitive management of his stone. Procedure note: The patient was consented in the preoperative holding area before being transferred to the operative suite where general anesthesia was induced. He was given Ancef 2 g IV antimicrobial prophylaxis, and pneumoboots were provided for DVT prophylaxis. He was placed in the lithotomy position, padded and secured to the table appropriately. His genitalia was prepped with Hibiclens and he was draped in standard fashion. The case was begun using a 22 Guyanese rigid cystoscope to traverse the urethra and into the bladder with ease. The bladder was decompressed of fluid and urine and the stent was noted to emanate from the right ureteral orifice. Using an alligator grasper, the tip of the coil of the stent was delivered to the meatus leaving the proximal coil within the mid ureter. I then advanced a Bentson guidewire up the stent where it did coil and turn posteriorly. I attempted to get the wire to go into the collecting system by advancing a 5 Guyanese ureteral access catheter over the wire, but it still had a hook at the end that made that prohibitive. As a result, I had to utilize a dual-lumen catheter placed into the mid ureter and I performed a retrograde study before advancing the wire into the collecting system successfully. Right retrograde pyelography: Using a 70: 30 mixture of Omnipaque and saline, I injected the contrast mixture via the second lumen of the dual-lumen catheter placed over the indwelling Bentson guidewire. I confirmed the contrast did emanate into the proximal ureter and the collecting system before repositioning the Bentson guidewire successfully into the upper pole. I then remove the dual-lumen catheter and perform direct vision semirigid ureteroscopy via the urethra into the bladder. I navigated up the distal into the mid before getting into the mid proximal ureter and identifying the stone. Then using a 1.9 Guyanese 0 tip nitinol basket, I grasped the stone and was able to bring it down into the mid distal ureter where it reached the point of ureteral spasm/obstruction. I was not able to get the stone passed at this point; so I then employed a 272 nm laser fiber at a power setting of 0.8 J and 10 Hz to fragment the stone into about half the size and about 4 or 5 fragments, which I was then able to remove using the basket. I delivered some of the fragments into the bladder and then navigated back up into the ureter grabbing more fragments and delivering those into the bladder before navigating back into the ureter and grabbing the final small fragment. I then remove the ureteroscope and backloaded the cystoscope over the indwelling Zeoson safety wire. I then passed a 7 Guyanese by 26 cm double-J ureteral stent over the wire into the collecting system with a coil observed fluoroscopically there. An additional coil was formed cystoscopically in his bladder. I then decompressed the bladder fluid and urine and collected the stone dust using the cystoscope out of the bladder. This was sent for chemical analysis. I then completely decompressed his bladder and remove the cystoscope. The tether of the stent was then secured to the penis using Mastisol and Steri-Strips. I then took the patient out of the lithotomy position. He was awakened from general anesthesia, transferred to a stretcher, and then transferred to the recovery room in good condition. Complications: None Discharge disposition: He should keep the tethered stent for the next 3 days, until Tuesday where it may be removed in the office. I sent a prescription for cephalexin for the next 3 days. Subsequent follow-up should be established in about 3 months with a Litholink metabolic profile assessment completed no sooner than 1 month from the date of surgery but at least 1 month prior to scheduled follow-up.
[2025-02-05 13:43] VITALS: O2SAT 99
[2025-02-05] MEDS ORDERED: HYDROCODONE/APAP 5/325 MG TAB ONE (14:21)
[2025-02-05] MEDS: HYDROCODONE/APAP 5/325 MG TAB PO PRN (14:25)
[2025-02-05] MEDS ORDERED: OXYBUTYNIN ER 5 MG TAB PO ONE (14:36)
[2025-02-05] MEDS: PHENAZOPYRIDINE 100MG TAB PO ONE (14:36)
[2025-02-05] MEDS ORDERED: PHENAZOPYRIDINE 100MG TAB PO ONE (14:36)
[2025-02-05] MEDS: OXYBUTYNIN ER 5 MG TAB PO ONE (14:36)
[2025-02-05 15:07] VITALS: BP 114/57; TEMP 97.8
--- NOTE | 2025-02-06 12:21 | RAD REPORT ---
EXAM: Fluoroscopy use, Urethrocystogrphy Retrograde HISTORY: RIGHT STENT EXCHANGE COMPARISON: None FINDINGS: A total of 11 images were sent to PACS, during a fluoroscopically guided lithotripsy and ri ght stent exchange. No radiologist was involved in protocoling or performance of the study, and no radiologist was present for the duration of the procedure. No interpretation of the saved images will be provided. Total fluoroscopy time: 19 seconds. Cumulative dose: 7.3 mGy IMPRESSION: Documentation of fluoroscopy use as above.
== END 2025-02-05 14:59 | disposition home or self-care (01) ==
LOC: OR 09:18
PROVIDERS: ATTEND Urology
PROC: 0T768DZ Dilation of Right Ureter with Intraluminal Device, Via Natural or Artificial Opening Endoscopic (ICD-10-PCS; 2025-02-05)
PROC: 0TC68ZZ Extirpation of Matter from Right Ureter, Via Natural or Artificial Opening Endoscopic (ICD-10-PCS; principal; 2025-02-05 10:45)
DX: N20.1 Calculus of ureter (principal)
CPT/HCPCS: 93005; 87088; 81001; 87086; 36415; 85610; 88300; 82360; 71046; 74450; 51610; 52356; J2704; J2003; J2371; J2250; J3010; J2405; J7120; C2617